=== PATIENT | female | born 1965 | race African-American/Black ===

== ENCOUNTER 2019-01-20 22:54 | Inpatient (IN) | payer BC, OTHER ==
[~2019-01-20] VITALS: Ht 167.6 cm; Wt 101.6 kg
--- NOTE | 2019-01-20 23:15 | NUR ---
Patient ambulated with stable gait. A/Ox4. Speech clear, speaks in complete sentences. No neuro deficits. Patient came for c/o cp x2 days and numbness/tingling in the jaw. Respiratory even and unlabored, no cough or sob. Denies any n/v/d.
[2019-01-20 23:32] LABS: BASOPHILS % (AUTO) 0.5 % (0.0-2.0); EOSINOPHILS # (AUTO) 0.6 K/uL (0.0-0.7); EOSINOPHILS % (AUTO) 7.7 % (0.0-7.0); HEMATOCRIT 39.8 % (31.2-41.9); HEMOGLOBIN 12.7 g/dL (10.9-14.3); LYMPHOCYTES # (AUTO) 1.8 K/uL (20.0-40.0); LYMPHOCYTES % (AUTO) 24.4 % (20.5-51.5); MEAN CORPUSCULAR HEMOGLOBIN 25.8 uug (24.7-32.8); MEAN CORPUSCULAR HGB CONC 32 g/dL (32.3-35.6); MEAN CORPUSCULAR VOLUME 80.8 fL (75.5-95.3); MONOCYTES # (AUTO) 0.7 K/uL (2.0-10.0); MONOCYTES % (AUTO) 8.8 % (0.0-11.0); NEUTROPHILS # (AUTO) 4.3 K/uL (1.8-8.9); NEUTROPHILS % (AUTO) 58.6 % (38.5-71.5); PLATELET COUNT (AUTO) 311 K/uL (179-408); RED BLOOD CELL COUNT(AUTO) 4.93 MIL/uL (3.63-4.92); WHITE BLOOD COUNT (AUTO) 7.4 K/uL (3.8-11.8)
[2019-01-20 23:38] LABS: POTASSIUM 3.8 mmol/L (3.5-5.1)
[2019-01-20] MEDS ORDERED: NITROGLYCERIN 0.4 MG/TAB BOTTLE SL ONE (23:42)
[2019-01-20] MEDS ORDERED: ASPIRIN 81 MG TAB.CHEW ONE (23:42)
[2019-01-20] MEDS ORDERED: NITROGLYCERIN OINT 1 GM PACKET TP ONE ×2 (23:43→23:45)
[2019-01-20] MEDS ORDERED: ASPIRIN 81 MG TAB.CHEW PO ONE (23:45)
[2019-01-20] MEDS ORDERED: AMLO1CAP2 PO (23:52)
--- NOTE | 2019-01-21 00:15 | NUR ---
Patient in bed resting, NAD VSS
[2019-01-21] MEDS ORDERED: NITROGLYCERIN 0.4 MG/TAB BOTTLE SL PRN (01:00)
[2019-01-21] MEDS ORDERED: ONDANSETRON 4 MG/2 ML VIAL IV PRN (01:00)
[2019-01-21] MEDS ORDERED: MORPHINE SULFATE 2 MG/1 ML DISP.SYRIN IV PRN (01:00)
--- NOTE | 2019-01-21 01:13 | NUR ---
Patient transported to TELE in stable condition.
--- NOTE | 2019-01-21 01:18 | NUR ---
Patient is in room 330 TELE
[2019-01-21] MEDS: ASPIRIN 81 MG TAB.CHEW PO SCH ×2 (01:33→09:14)
[2019-01-21 02:37] VITALS: BP 127/61
[2019-01-21 04:28] VITALS: BP 100/55
--- NOTE | 2019-01-21 05:36 | NUR ---
patient received from ER on [facility]. a/ox4. no signs of acute distress and v/s noted throughout shift. Iv intact and patent. safety and comfort measures provided at all times. denies chest pain at this time. will continue to monitor and endorse care accordingly to morning nurse.
--- NOTE | 2019-01-21 07:30 | NUR ---
Received patient in bed who was asleep, but awoken upon entering the room. Respirations normal. Sinus rhythm on monitor. Complains of mild head ache. Will obtain order for pain medication. Other than that denies discomfort at the moment. Safety precautions in place, call light within reach. Bed low, locked, and side rails up x 2. Will continue to monitor patient throughout shift.
[2019-01-21] MEDS ORDERED: ACETAMINOPHEN ES 500 MG TABLET PO ONE (09:00)
[2019-01-21] MEDS ORDERED: ACETAMINOPHEN 325 MG TABLET PO PRN (09:00)
[2019-01-21] MEDS: METOPROLOL TARTRATE 50 MG TABLET PO SCH ×2 (09:20→17:00)
[2019-01-21 11:47] VITALS: BP 118/58
[2019-01-21] MEDS ORDERED: AMLODIPINE 10 MG TABLET PO SCH (14:55)
[2019-01-21] MEDS ORDERED: BENAZEPRIL HCL 20 MG TABLET PO SCH (14:56)
[2019-01-21 15:23] VITALS: BP 101/43
--- NOTE | 2019-01-21 18:20 | NUR ---
Patient given discharge instructions, IV removed and prescriptions given along with a pharmacy consultation. Patient provided with Dr. Can's information in order to get an outpatient stress test. ID band removed and patient walked out to discharge area. Patient also provided with a note by ELIZABETH Cassidy for work.
[2019-01-22] MEDS ORDERED: Medication Not On Formulary EA (Amlodipine Besylate/Benazepril (Lotrel 10-40 Mg Capsule) PO SCH (09:00)
== END 2019-01-21 18:20 | disposition home or self-care (01) | DRG 882 ==
LOC: ER 22:55 → TELE3 01-21 01:01 → MEDSURG3 01-21 16:55
PROVIDERS: ADMIT Internal Medicine; ATTEND Nurse Practitioner Acute Care
DX: F43.9 Reaction to severe stress, unspecified (principal); R07.89 Other chest pain; I25.10 Atherosclerotic heart disease of native coronary artery without angina pectoris; I10 Essential (primary) hypertension; Z63.8 Other specified problems related to primary support group; I70.0 Atherosclerosis of aorta
CPT/HCPCS: 36415; 70030-TC; 71045; 84443; 85025; 93005; 93307; A4663; A9150; G0378